=== PATIENT | female | born 1960 | race Asian ===

== ENCOUNTER 2019-11-18 12:11 | Emergency (ER) | payer OTHER ==
[~2019-11-18] VITALS: Ht 170.2 cm; Wt 59.0 kg
[2019-11-18 13:40] LABS: PLATELET COUNT 313 K/uL (152-353)
[2019-11-18 13:46] LABS: POTASSIUM 4.6 mmol/L (3.6-5.2)
[2019-11-18 17:05] VITALS: BP 139/71; TEMP 97.9
== END 2019-11-18 17:09 | disposition home or self-care (01) ==
LOC: ED 12:11
PROVIDERS: Family Medicine
DX: N20.0 Calculus of kidney (principal); N39.0 Urinary tract infection, site not specified
CPT/HCPCS: 80053; 81000; 85027; 87077; 87086; 87088; 87186; 96360; 96375; 99284; J0696; J1885

== ENCOUNTER 2022-02-28 08:34 | Outpatient (CLI) | payer BC | END 2022-02-28 20:54 | disposition home or self-care (01) | LOC: RAD 08:34 | PROVIDERS: ATTEND Nurse Practitioner Family | DX: Z13.820 Encounter for screening for osteoporosis (principal); N95.8 Other specified menopausal and perimenopausal disorders ==

== ENCOUNTER 2023-06-13 15:47 | Emergency (ER) | payer OTHER ==
[~2023-06-13] VITALS: Ht 170.2 cm; Wt 63.5 kg
[2023-06-13 15:51] VITALS: TEMP 98.6
[2023-06-13 16:37] LABS: PLATELET COUNT 315 K/uL (152-353)
[2023-06-13 16:46] LABS: POTASSIUM 3.8 mmol/L (3.6-5.2)
[2023-06-13 18:20] VITALS: BP 145/68
== END 2023-06-13 19:16 | disposition home or self-care (01) ==
LOC: ED 15:47
PROVIDERS: Family Medicine
DX: N39.0 Urinary tract infection, site not specified (principal)
CPT/HCPCS: 80053; 81000; 83605; 83735; 85027; 87077; 87086; 87088; 87186; 93005; 96360; 99284